=== PATIENT | male | born 1965 | race Caucasian/White ===

== ENCOUNTER → 2022-04-07 | Outpatient (CLI) | payer OTHER, SELFPAY ==
--- NOTE | 2022-04-07 | IMM_PTH ---
PATIENT: GERSON NIÑO LOC: [facility] U#:[id number] AGE/SX: 56/M ROOM: RE04/07/[address]: Dr. Jhon Casillas MD : 1965 BED: DIS: 04/07/2022 SPEC #: [id number] RECD: 04/09/22 14:32 STATUS: RU REQ #: [id number] VITOR: 04/07/22 00:[address]: Jhon Casillas DEPT: IMMUNOHISTOCHEMISTRY RECD BY: Mervat Murcia ENTERED: 04/09/22 14:33 SP TYPE: IMMUNO OTHR DR: Dr. Ricci Franz MD Tissues: Tongue, NOS Procedures: P53 (initial) KI-67 (add) P16 (add) PHYSICIAN & INSTITUTION [place] [id number] SPECIMEN INFORMATION: Tissue Source: Tongue ulcer Clinical Info: Tongue ulcer Specimen Number: [id number] CPT code: 88362, 60119 x2 METHODOLOGY: Deparaffinized sections of prefer/formalin-fixed tissue or PAP/DQ stained slides are incubated with monoclonal/polyclonal antibodies/oligonucleotide probes. Localization is made via biotin free immunoperoxidase method. Appropriate controls are performed and reacted as expected. Results on target cell population are indicated in the following table: RESULTS: ANTIBODY / CLONE RESULT P53 (DO-7) negative Ki-67 (30-9) positive, low P16 (E6H4) negative These tests were developed and their performance characteristics determined by [facility]. They may not have been cleared or approved by the [place] Food and Drug Administration. The FDA has determined that such clearance or approval is not necessary. The above immunohistochemical/dualISH markers are ordered and reviewed by the Pathologist. INTERPRETATION: Tongue ulcer, biopsy: No evidence of HPV change. AM:martina 04/13/2022
--- NOTE | 2022-04-07 15:45 | UL_PTH ---
PATIENT: GERSON NIÑO LOC: [facility] U#:[id number] AGE/SX: 56/M ROOM: RE04/07/[address]: Dr. Jhon Casillas MD : 1965 BED: DIS: 04/07/2022 SPEC #: [id number] RECD: 04/08/22 08:40 STATUS: RU DICKEYJarad #: [id number] VITOR: 04/07/22 15:[address]: Jhon Casillas DEPT: SURGICAL PATHOLOGY RECD BY: Aileen He ENTERED: 04/08/22 08:42 SP TYPE: ULCER OTHR DR: Dr. Ricci Franz MD Tissues: ULCER Procedures: Surgery Specimen Level IV HEADER OPERATION: Not noted PRE-OP DIAGNOSIS: Tongue ulcer TISSUE SUBMITTED: Tongue ulcer MICROSCOPIC DIAGNOSIS Tongue ulcer, biopsy: Acanthosis with mild atypia, favor reactive. Mild chronic inflammation. See comment. AM:martina 04/09/2022 COMMENT Immunohistochemistry ([id number]) for P53 and Ki-67 will be performed and results will be reported separately. Case has been reviewed in consultation with Dr. Malcolm who concurs with the above diagnosis. IDC:[id number] MICROSCOPIC DESCRIPTION Slides are reviewed. GROSS DESCRIPTION Received in fixative is one container labeled with the patient's name and designated tongue ulcer. The specimen consists of one irregular fragment of grider mucosal tissue that measures 0.2 x 0.2 x 0.1 cm. The specimen is totally submitted in one cassette. / FABIANA:martina 04/08/2022 TC:3 CPT: 44354
== END | disposition home or self-care (01) ==
LOC: LABSPEC 16:04
PROVIDERS: PCP Family Medicine; Visit Provider Otolaryngology
DX: K14.3 Hypertrophy of tongue papillae (principal)
CPT/HCPCS: 88304; 88305; 88341; 88342